=== PATIENT | male | born 1965 | race Caucasian/White ===

== ENCOUNTER 2018-03-25 16:21 | Inpatient (IN) ==
[2018-03-25] MEDS ORDERED: Vancomycin Inj 1,000 MG in Sodium Chlor 0.9% Inj 250 ML IV.SIG ONE ×2 (20:21→23:00)
--- NOTE | 2018-03-25 20:34 | ED ---
HPI General Chief complaint: Wound/Laceration Stated complaint: Foot swelling Time Seen by Provider: 03/25/18 20:13 History of Present Illness HPI narrative: 52-year-old male with a history of diabetes and hypertension presents to the urgency department for evaluation of right fourth toe infection. Patient was sent here by his assembler motor vehicle Dr. Leslie due to failed outpatient antibiotic therapy for foot infection. The patient states that the toe became significantly swollen over the past week. States that he started taking antibiotics 1 week ago. Initially started out with Cipro however had an adverse reaction of vomiting and therefore was switched to Bactrim which she has been taking for the past week. States that despite taking the antibiotics the swelling and redness of his toe has worsened. States that he has had fevers at night as well. He denies any specific pain located at the toe as he states he has reduced sensation in his feet due to the diabetes. No other complaints. Related Data Home Medications Medication Instructions Recorded Confirmed amlodipine 2.5 mg PO DAILY 03/25/18 03/25/18 gabapentin 300 mg PO TID 03/25/18 03/25/18 glipizide 10 mg PO BID 03/25/18 03/25/18 lisinopril 40 mg PO DAILY 03/25/18 03/25/18 lovastatin 40 mg PO DAILY 03/25/18 03/25/18 metformin 1,000 mg PO BID 03/25/18 03/25/18 sulfamethoxazole-trimethoprim 1 tab PO BID 03/25/18 03/25/18 Allergies Allergy/AdvReac Type Severity Reaction Status Date / Time No Known Allergies Allergy Verified 03/25/18 20:12 Review of Systems ROS: all other systems reviewed are negative PMFSH Medical History Medical History Diabetes (Acute) Hypertension (Acute) Surgical History Surgical History Hx of right knee surgery (Acute) Social History Social History Substance History: No History of Abuse Second Hand Smoke Exposure: No Smoking Status: Never smoker How Often Do You Have a Drink Containing Alcohol: Never Recent Travel in [facility] within the Last 8 Weeks: No Recent Out of Country Travel within the Last 8 Weeks: No Immunization History Tetanus Immunization: Unsure Hx Influenza Vaccine This Season: Unable to Assess Exam Narrative Exam Narrative: GENERAL: Well-nourished and well-developed pleasant patient in no acute distress who is nontoxic appearing. SKIN: Warm and dry. HEAD: Normocephalic and atraumatic. EYES: No injection, drainage, or hyphema noted. PERRLA. EOMI. ENT: No nasal drainage noted. Oropharynx is clear. NECK: Supple and the trachea is midline. CARDIOVASCULAR: Regular rate and rhythm. RESPIRATORY: Breath sounds are equal bilaterally with no accessory muscle use, wheezing, rhonchi, or crackles. GASTROINTESTINAL: Abdomen is soft, non-tender, and nondistended. MUSCULOSKELETAL: Right fourth toe is swollen and erythematous, no obvious discharge or drainage. No obvious deformities, swelling, cyanosis, or ecchymosis is present throughout the upper and lower extremities. Patient has full range of motion without any signs of neurovascular compromise. Distal pulses are 2+ throughout. NEUROLOGICAL: Awake, alert, and oriented. Normal speech and gait. Cranial nerves are grossly intact. Course Initial Documented Vital Signs Temperature 98.7 F 03/25/18 16:37 Pulse Rate 76 03/25/18 16:37 Respiratory Rate 14 03/25/18 16:37 Blood Pressure 156/75 H 03/25/18 16:37 Pulse Oximetry 97 03/25/18 16:37 Last Documented Vital Signs Temperature 99.1 F 03/25/18 20:14 Pulse Rate 73 03/25/18 20:14 Respiratory Rate 18 03/25/18 20:14 Blood Pressure 179/88 H 03/25/18 20:31 Pulse Oximetry 97 03/25/18 20:31 Medical Decision Making MDM Narrative Medical decision making narrative: 52-year-old male presents to the emergency department for evaluation of right fourth toe infection. Patient is afebrile, vital signs are stable. Patient was sent with an order from his assembler motor vehicle Dr. Leslie which states to admit the patient for failed outpatient antibiotics and to order MRI, labs and consultation to Dr. Smith. IV access is obtained, labs have been drawn and sent. Patient is placed on cardiac telemetry and pulse oximetry monitoring. The patient reports an allergy to cipro and he has a bottle of Bactrim with him that he states he has been taking for the toe infection. The prescription form that Dr. Leslie wrote states he has been taking and failed cipro and clindamycin. Therefore will give patient IV vancomycin for failed outpatient antibiotics. CBC shows mild anemia, otherwise unremarkable. X-ray shows abnormal appearance with soft tissue swelling and bony resorption of distal phalanx about tuft. Potassium is elevated at 5.5, creatinine 1.83, GFR 39. ESR is greater than 140. CRP is 5.7 MRI pending. Patient will be admitted for failed outpatient antibiotic therapy for right 4th toe infection with possible osteomyelitis. Consult to podiatry placed. I spoke with Dr. Chong who agrees to admit patient to Dr. Roper's service. Medical Screen Exam Complete: Yes Emergency Medical Condition: Yes Differential Diagnosis Differential Diagnosis: Diabetic foot wound versus cellulitis versus abscess versus osteomyelitis Lab Data Result diagrams: 03/25/18 20:44 03/25/18 20:44 Lab Results 03/25/18 03/25/18 03/25/18 Range/Units 20:44 20:44 20:44 WBC 8.3 (4.0-11.0) th/mm3 RBC 3.28 L (4.50-5.90) mil/mm3 Hgb 10.3 L (13.0-17.0) gm/dL Hct 30.4 L (39.0-51.0) % MCV 92.5 (80.0-100.0) fL MCH 31.3 (27.0-34.0) pg MCHC 33.9 (32.0-36.0) % RDW 13.2 (11.6-17.2) % Plt Count 300 (150-450) th/mm3 MPV 8.5 (7.0-11.0) fL Neut % (Auto) 71.8 H (16.0-70.0) % Lymph % (Auto) 9.9 (9.0-44.0) % [place] % (Auto) 8.4 H (0.0-8.0) % Eos % (Auto) 9.5 H (0.0-4.0) % Baso % (Auto) 0.4 (0.0-2.0) % Neut # (Auto) 6.0 (1.8-7.7) th/mm3 Lymph # (Auto) 0.8 L (1.0-4.8) th/mm3 [place] # (Auto) 0.7 (0.0-0.9) th/mm3 Eos # (Auto) 0.8 H (0.0-0.4) th/mm3 Baso # (Auto) 0.0 (0.0-0.2) th/mm3 WBC Differential . Differential Comment Auto diff final ESR (0-20) mm/hr Sodium 138 (136-145) meq/L Potassium 5.5 H (3.5-5.1) meq/L Chloride 107 (98-107) meq/L Carbon Dioxide 22.6 (21.0-32.0) meq/L Anion Gap 8 (5-15) meq/L BUN 28 H (7-18) mg/dL Creatinine 1.83 H (0.60-1.30) mg/dL Estimated GFR 39 L (>89) mL/min Random Glucose 111 H (74-106) mg/dL Lactic Acid 1.0 (0.4-2.0) mmol/L Calcium 8.7 (8.5-10.1) mg/dL Total Bilirubin 0.2 (0.2-1.0) mg/dL AST 14 L (15-37) U/L ALT 22 (12-78) U/L Alkaline Phosphatase 91 (45-117) U/L C-Reactive Protein (0.00-0.30) mg/dL Total Protein 7.5 (6.4-8.2) g/dL Albumin 3.0 L (3.4-5.0) g/dL 03/25/18 03/25/18 Range/Units 20:44 20:44 WBC (4.0-11.0) th/mm3 RBC (4.50-5.90) mil/mm3 Hgb (13.0-17.0) gm/dL Hct (39.0-51.0) % MCV (80.0-100.0) fL MCH (27.0-34.0) pg MCHC (32.0-36.0) % RDW (11.6-17.2) % Plt Count (150-450) th/mm3 MPV (7.0-11.0) fL Neut % (Auto) (16.0-70.0) % Lymph % (Auto) (9.0-44.0) % [place] % (Auto) (0.0-8.0) % Eos % (Auto) (0.0-4.0) % Baso % (Auto) (0.0-2.0) % Neut # (Auto) (1.8-7.7) th/mm3 Lymph # (Auto) (1.0-4.8) th/mm3 [place] # (Auto) (0.0-0.9) th/mm3 Eos # (Auto) (0.0-0.4) th/mm3 Baso # (Auto) (0.0-0.2) th/mm3 WBC Differential Differential Comment ESR Greater than 140 H (0-20) mm/hr Sodium (136-145) meq/L Potassium (3.5-5.1) meq/L Chloride (98-107) meq/L Carbon Dioxide (21.0-32.0) meq/L Anion Gap (5-15) meq/L BUN (7-18) mg/dL Creatinine (0.60-1.30) mg/dL Estimated GFR (>89) mL/min Random Glucose (74-106) mg/dL Lactic Acid (0.4-2.0) mmol/L Calcium (8.5-10.1) mg/dL Total Bilirubin (0.2-1.0) mg/dL AST (15-37) U/L ALT (12-78) U/L Alkaline Phosphatase (45-117) U/L C-Reactive Protein 5.70 H (0.00-0.30) mg/dL Total Protein (6.4-8.2) g/dL Albumin (3.4-5.0) g/dL Imaging Data Radiologist's impression: Foot X-Ray 03/25/18 20:21 CONCLUSION: Abnormal appearance to the fourth digit with prominent soft tissue swelling and some degree of bony resorption of the distal phalanx about the tuft. Discharge Plan Discharge Disposition Patient Disposition: 30 Still Patient Discharge Details Diagnosis: Infection of toe, Failure of outpatient treatment Physicians Team ED Provider: Mandy Vargas ED Midlevel Provider: Veronica Osorio Primary Care Provider: UNKNOWN, Rxs /Orders / Referrals /Forms Prescriptions: No Action glipizide 10 mg Tablet 10 mg PO BID RF: 0 lovastatin 40 mg Tablet 40 mg PO DAILY RF: 0 amlodipine 2.5 mg Tablet 2.5 mg PO DAILY RF: 0 sulfamethoxazole-trimethoprim 800-160 mg Tablet 1 tab PO BID RF: 0 metformin 1,000 mg Tablet 1,000 mg PO BID RF: 0 gabapentin 300 mg Capsule 300 mg PO TID RF: 0 lisinopril 40 mg Tablet 40 mg PO DAILY RF: 0 Discharge Interventions Interventions: Vital Signs Last Done: 03/25/18 20:31 Status ED Status: With Doctor
[2018-03-25 21:10] LABS: Baso % (Auto) 0.4 % (0.0-2.0); Eos # (Auto) 0.8 th/mm3 (0.0-0.4); Eos % (Auto) 9.5 % (0.0-4.0); Hematocrit 30.4 % (39.0-51.0); Hemoglobin 10.3 gm/dL (13.0-17.0); Lymph # (Auto) 0.8 th/mm3 (1.0-4.8); Lymph % (Auto) 9.9 % (9.0-44.0); Mean Corpuscular HGB Conc 33.9 % (32.0-36.0); Mean Corpuscular Hemoglobin 31.3 pg (27.0-34.0); Mean Corpuscular Volume 92.5 fL (80.0-100.0); Mean Platelet Volume 8.5 fL (7.0-11.0); Mono # (Auto) 0.7 th/mm3 (0.0-0.9); Mono % (Auto) 8.4 % (0.0-8.0); Neut % (Auto) 71.8 % (16.0-70.0); Platelet Count 300 th/mm3 (150-450); Red Blood Count 3.28 mil/mm3 (4.50-5.90); Red Cell Distribution Width 13.2 % (11.6-17.2); White Blood Count 8.3 th/mm3 (4.0-11.0)
--- NOTE | 2018-03-25 21:18 | XR ---
EXAM DATE: 03/25/2018 9:05 PM EDT AGE/SEX: 52 years / Male INDICATIONS: Right foot infection. CLINICAL DATA: This is the patient's initial encounter. Patient reports that signs and symptoms have been present for 2 months and indicates a pain score of 0/10. MEDICAL/SURGICAL HISTORY: None. None. COMPARISON: No prior exams available for comparison. FINDINGS: Bone density is normal. There is deformity of the interphalangeal joint of the fifth digit without de finite dislocation. No evidence of periosteal reaction or bony destruction about the fifth digit. No radiopaque foreign bodies in the soft tissues. There is prominent soft tissue swelling of the fourth digit and mild bony resorption of the distal ph alanx, especially about the tuft. CONCLUSION: Abnormal appearance to the fourth digit with prominent soft tissue swelling and some degree of bony r esorption of the distal phalanx about the tuft. Electronically signed by: Carlos Alberto Subramanian MD 03/25/2018 9:16 PM EDT
[2018-03-25 21:34] LABS: Anion Gap 8 meq/L (5-15); Aspartate Aminotransferase 14 U/L (15-37); Blood Urea Nitrogen 28 mg/dL (7-18); Calcium 8.7 mg/dL (8.5-10.1); Carbon Dioxide 22.6 meq/L (21.0-32.0); Chloride 107 meq/L (98-107); Glomerular Filtration Rate 39 mL/min (>89); Glucose,Random 111 mg/dL (74-106); Potassium 5.5 meq/L (3.5-5.1); Sodium 138 meq/L (136-145)
[2018-03-25 21:35] LABS: Alanine Aminotransferase 22 U/L (12-78)
[2018-03-25 21:40] LABS: Alkaline Phosphatase 91 U/L (45-117); Total Protein 7.5 g/dL (6.4-8.2)
[2018-03-25] MEDS ORDERED: Gadobutrol PF 10 MMOL/10 ML Vial (for RAD) IV.SIG ONE (22:17)
[2018-03-25] MEDS ORDERED: Vancomycin Consult Pharmacy OTHER PRN (22:46)
[2018-03-25] MEDS ORDERED: Dextrose 50% in Water 50 ML Vial IV.PUSH PRN (22:47)
[2018-03-25] MEDS ORDERED: Sod Chloride 0.9% Inj 1,000 ML IV.CONT SCH (23:00)
--- NOTE | 2018-03-25 23:00 | MR ---
EXAM DATE: 03/25/2018 10:33 PM EDT AGE/SEX: 52 years / Male INDICATIONS: Osteomyelitis. Tip of fourth toe digit on right foot. CLINICAL DATA: This is the patient's initial encounter. Patient reports that signs and symptoms have been present for 2 months and indicates a pain score of 1/10. MEDICAL/SURGICAL HISTORY: Diabetes mellitus type II. Hypertension. . Knee sx. COMPARISON: No prior exams available for comparison. TECHNIQUE: Multiplanar, multisequence MRI examination was performed without contrast and after th e intravenous administration of 10 ml Gadavist (gadobutrol) single exam dose. FINDINGS: Conventional radiographs demonstrated lytic destruction of the distal phalanx of the fourth digit an d soft tissue swelling. The MRI is abnormal demonstrating loss of delineation between bone and soft t issue of the distal phalanx with T1 and T2 prolongation. On the postcontrast images, there is intense enhancement throughout the distal phalanx and in the surrounding soft tissues. No signal abnormality seen in the middle phalanx marrow and no enhancement in the middle phalanx. There is dislocation of the DIP joint of the fifth digit with one shaft width displacement of the dis georgina phalanx. No signal abnormality seen in the midfoot. CONCLUSION: 1. Findings are diagnostic of osteomyelitis of the distal phalanx of the fourth digit with destructi on of the phalanx. Electronically signed by: Carlos Alberto Subramanian MD 03/25/2018 10:58 PM EDT
[2018-03-26] MEDS: Insulin NovoLOG Aspart Correctional Sugar Inj SQ SCH ×3 (08:48→17:34)
[2018-03-26] MEDS: Gabapentin 300 MG Capsule PO SCH ×3 (08:49→17:34)
--- NOTE | 2018-03-26 08:53 | P.HPIM ---
History of Present Illness Primary Care Physician: Dr. Dewayne Ma Chief Complaint: Right foot 4th digit infection History of Present Illness: Mr. Busby is a pleasant 52 y/o male with diabetes and HTN. He presented to the ED at [facility] on 03/25/18 with complaints of right foot 4th digit infection and swelling. Pt does not speak any Slovak. His daughter is at bedside to aide in translation. Pt has reportedly been having issues with swelling of the right foot 4th digit for the last 3 weeks. He has been following with Dr. Leslie as an outpt who has been monitoring the digit in the output setting. Around 1 week ago the pt reportedly noted worsening swelling and fevers. He was started on Cipro but this reportedly caused him to have vomiting and was then switched to Bactrim BID on 03/20/18 which he has been taking but there has not been any significant improvement in the infection. There has not been any reported open wound or drainage from the digit. Pt denies any trauma or injury to the toe or foot prior to the onset of swelling 3 weeks ago. In the ED he had Foot X-Ray which noted an abnormal appearance to the fourth digit with prominent soft tissue swelling and some degree of bony resorption of the distal phalanx about the tuft. Foot MRI revealed findings diagnostic of osteomyelitis of the distal phalanx of the fourth digit with destruction of the phalanx. Pt was started on IV Vancomycin in the ED. He denies any shaking chills, nausea/vomiting, abdominal pain, chest pain, SOB, palpitations, dizziness or weakness. Past Medical Hx: Diabetes mellitus, Hgb A1C 7.0% on 03/04/18 Peripheral Neuropathy HTN Hyperlipidemia Hx of femur fracture Past Surgical Hx: Femur fracture repair Family Hx: Noncontributory Social Hx: Tomer any alcohol, tobacco or illicit drug use Pt works as a air intelligence officer - Diagnosis (1) Infection of toe (2) HTN (hypertension) (3) Diabetes mellitus (4) Peripheral neuropathy Inpatient Certification: I certify that the inpatient services were ordered in accordance with Medicare regulations governing the order. This includes certification that hospital inpatient services are reasonable and necessary and in the case of services not specified as inpatient-only under 42 CFR 419.22(n), that they are appropriately provided as inpatient services in accordance to with the 2-midnight benchmark under 43 CFR 412.3(e) Estimated Total Length of Stay (Days): 3 Plans for Post Hospital Care: Not yet determined Review of Systems Constitutional: Reports fever(s), Denies chills, Denies night sweats, Denies weight loss Eyes: Denies change in vision Ears, Nose, Mouth, and Throat: Denies dizziness, Denies nasal congestion Cardiovascular: Reports foot swelling, Denies chest pain, Denies leg swelling, Denies shortness of breath Respiratory: Denies chest congestion, Denies shortness of breath Gastrointestinal: Denies abdominal pain, Denies constipation, Denies loose stools, Denies nausea, Denies vomiting Genitourinary: Denies urinary frequency, Denies urinary hesitancy Musculoskeletal: Reports joint swelling Skin/Breast: Reports wounds Neurologic: Denies dizziness Psychiatric: Denies anxiety PMFSH - History History Provided By: Patient, Family Member - Medical History Medical History: Medical History (Last Updated 03/25/18 @ 20:33 by Vania Gandhi RN) Diabetes Hypertension - Surgical History Surgical History: Surgical History (Last Updated 03/25/18 @ 20:15 by Vania Gandhi RN) Hx of right knee surgery - Tobacco History Second Hand Smoke Exposure: No Smoking Status: Never smoker Tobacco Type: Cigarettes - Alcohol History How Often Do You Have a Drink Containing Alcohol: Never - Substance Use History Substance History: No History of Abuse - Travel History Recent Travel in the [place] Within the Last 8 Weeks: No Recent Travel Out of the Country Within the Last 8 Weeks: No - Immunization History Tetanus Immunization: Unsure Hx Influenza Vaccine This Season: Unable to Assess Medications and Allergies Allergies Allergy/AdvReac Type Severity Reaction Status Date / Time No Known Allergies Allergy Verified 03/25/18 20:12 Home Medications Medication Instructions Recorded Confirmed Type amlodipine 2.5 mg PO DAILY 03/25/18 03/25/18 History gabapentin 300 mg PO TID 03/25/18 03/25/18 History glipizide 10 mg PO BID 03/25/18 03/25/18 History lisinopril 40 mg PO DAILY 03/25/18 03/25/18 History lovastatin 40 mg PO DAILY 03/25/18 03/25/18 History metformin 1,000 mg PO BID 03/25/18 03/25/18 History sulfamethoxazole-trimethoprim 1 tab PO BID 03/25/18 03/25/18 History Active Medications: Active Medications Amlodipine Besylate (Norvasc) 2.5 mg PO DAILY [facility] Dextrose (D50w Vial) 50 ml IV.PUSH UNSCH PRN PRN Reason: PER HYPOGLYCEMIA PROTOCOL Gabapentin (Neurontin) 300 mg PO TID [facility] Last Admin: 03/26/18 08:49 Dose: 300 mg Glucagon (Glucagon Inj) 1 mg OTHER PRN PRN PRN Reason: for Hypoglycemia Protocol Sodium Chloride (Ns Inj) 1,000 mls @ 100 mls/hr IV.CONT .Q10H [facility] Stop: 03/26/18 08:59 Last Admin: 03/26/18 00:18 Dose: 100 mls/hr Insulin Aspart (Novolog Insulin Correctional Sugar Inj) 0 unit SQ ACHS [facility]; Protocol Last Admin: 03/26/18 08:48 Dose: 2 unit Pharmacy Profile Note (Vancomycin Consult Pharmacy) 1 each OTHER UNSCH PRN PRN Reason: Pharmacy to dose Pravastatin Sodium (Pravachol) 40 mg PO DAILY [facility] Last Admin: 03/26/18 08:50 Dose: 40 mg Exam Vital signs: Vital Signs 03/25/18 16:37 03/25/18 20:14 03/25/18 20:31 Temperature 98.7 F 99.1 F Pulse Rate 76 73 Respiratory Rate 14 18 Blood Pressure 156/75 H 179/88 H Pulse Oximetry 97 98 97 03/26/18 00:00 03/26/18 04:00 Temperature 98.3 F 97.8 F Pulse Rate 75 72 Respiratory Rate 16 16 Blood Pressure 153/71 H 142/76 H Pulse Oximetry 98 97 Intake & Output 03/25/18 03/26/18 03/26/18 18:59 06:59 18:59 Intake Total 500 / 500 Balance 500 / 500 Weight 104.326 kg Intake: IV 500 / 500 Vancomycin Inj 1,000 MG In NS 500 / 500 Inj 250 ML @ 250 mls/hr IV.SIG ONCE ONE Rx#:[id number] Narrative: GENERAL: NAD, AAOx3 SKIN: Right foot, fourth toe is swollen and erythematous, no obvious drainage or open wound HEENT: Atraumatic. Normocephalic. Pupils equal and round. No scleral icterus. No injection or drainage. No nasal bleeding or discharge. Mucous membranes pink and moist. NECK: Trachea midline. No JVD. CARDIOVASCULAR: Regular rate and rhythm. RESPIRATORY: No accessory muscle use. Clear to auscultation. Breath sounds equal bilaterally. GASTROINTESTINAL: Abdomen soft, non-tender, nondistended. Hepatic and splenic margins not palpable. MUSCULOSKELETAL: Extremities without clubbing, cyanosis. No obvious deformities. +2 distal pulses bilaterally NEUROLOGICAL: Awake and alert. No obvious cranial nerve deficits. Motor grossly within normal limits. Five out of 5 muscle strength in the arms and legs. Normal speech. PSYCHIATRIC: Appropriate mood and affect; insight and judgment normal. Results - Labs CBC & Chem 7: 03/26/18 09:35 03/26/18 09:35 Labs: Short CBC 03/25/18 Range/Units 20:44 WBC 8.3 (4.0-11.0) th/mm3 Hgb 10.3 L (13.0-17.0) gm/dL Hct 30.4 L (39.0-51.0) % Plt Count 300 (150-450) th/mm3 BMP 03/25/18 20:44 Sodium 138 Potassium 5.5 H Chloride 107 Carbon Dioxide 22.6 BUN 28 H Creatinine 1.83 H Calcium 8.7 Liver Function 03/25/18 Range/Units 20:44 Total Bilirubin 0.2 (0.2-1.0) mg/dL AST 14 L (15-37) U/L ALT 22 (12-78) U/L Alkaline Phosphatase 91 (45-117) U/L Albumin 3.0 L (3.4-5.0) g/dL - Imaging Impressions Foot MRI 03/25/18 20:21 CONCLUSION: 1. Findings are diagnostic of osteomyelitis of the distal phalanx of the fourth digit with destruction of the phalanx. Foot X-Ray 03/25/18 20:21 CONCLUSION: Abnormal appearance to the fourth digit with prominent soft tissue swelling and some degree of bony resorption of the distal phalanx about the tuft. Caprini VTE Risk Assessment Caprini VTE Risk Assessment: No/Low Risk (score <= 1) Caprini Risk Assessment Model: Point Value = 1 Point Value = 2 Point Value = 3 Point Value = 5 Age 41-60 Minor surgery BMI > 25 kg/m2 Swollen legs Varicose veins or History of unexplained or recurrent spontaneous Oral contraceptives or hormone replacement Sepsis (< 1 month) Serious lung disease, including pneumonia (< 1 month) Abnormal pulmonary function Acute myocardial infarction Congestive heart failure (< 1 month) History of inflammatory bowel disease Medical patient at bed rest Age 61-74 Arthroscopic surgery Major open surgery (> 45 min) Laparoscopic surgery (> 45 min) Malignancy Confined to bed (> 72 hours) Immobilizing plaster cast Central venous access Age >= 75 History of VTE Family history of VTE Factor V Leiden Prothrombin [id number] Lupus anticoagulant Anticardiolipin antibodies Elevated serum homocysteine Heparin-induced thrombocytopenia Other congenital or acquired thrombophilia Stroke (< 1 month) Elective arthroplasty Hip, pelvis, or leg fracture Acute spinal cord injury (< 1 month) Prophylaxis Regimen: Total Risk Factor Score Risk Level Prophylaxis Regimen 0-1 Low Early ambulation 2 Moderate Order ONE of the following: *Sequential Compression Device (SCD) *Heparin 5000 units SQ BID 3-4 Higher Order ONE of the following medications: *Heparin 5000 units SQ TID *Enoxaparin/Lovenox 40 mg SQ daily (WT < 150 kg, CrCl > 30 mL/min) *Enoxaparin/Lovenox 30 mg SQ daily (WT < 150 kg, CrCl > 10-29 mL/min) *Enoxaparin/Lovenox 30 mg SQ BID (WT < 150 kg, CrCl > 30 mL/min) AND/OR *Sequential Compression Device (SCD) 5 or more Highest Order ONE of the following medications: *Heparin 5000 units SQ TID (Preferred with Epidurals) *Enoxaparin/Lovenox 40 mg SQ daily (WT < 150 kg, CrCl > 30 mL/min) *Enoxaparin/Lovenox 30 mg SQ daily (WT < 150 kg, CrCl > 10-29 mL/min) *Enoxaparin/Lovenox 30 mg SQ BID (WT < 150 kg, CrCl > 30 mL/min) AND *Sequential Compression Device (SCD) Assessment and Plan - Assessment (1) Infection of toe Code(s): L08.9 - Local infection of the skin and subcutaneous tissue, unspecified Status: Acute Plan: Right foot 4th digit infection and osteomyelitis - Pt is a 52 y/o male with diabetes and HTN. - He presented to the ED at [facility] on 03/25/18 with complaints of right foot 4th digit infection and swelling. Pt has reportedly been having issues with swelling of the right foot 4th digit for the last 3 weeks. He has been following with Dr. Leslie as an outpt who has been monitoring the digit in the output setting. Around 1 week ago the pt reportedly noted worsening swelling and fevers. He was started on Cipro but this reportedly caused him to have vomiting and was then switched to Bactrim BID on 03/20/18 which he has been taking but there has not been any significant improvement in the infection. There has not been any reported open wound or drainage from the digit. - Foot X-Ray (03/25/18) --> Abnormal appearance to the fourth digit with prominent soft tissue swelling and some degree of bony resorption of the distal phalanx about the tuft. - Foot MRI (03/25/18) --> Findings diagnostic of osteomyelitis of the distal phalanx of the fourth digit with destruction of the phalanx. - ESR greater than 140 and CRP 5.70 at admission. -Pt was started on IV Vancomycin in the ED with pharmacy to dose. - Podiatry is consulted. Discussed the case with Dr. Smith this morning and pt is planned to go to the OR later this evening - Pt is NPO - Cont. IVF - Arterial Doppler is ordered for today - Supportive care Acute on chronic kidney disease Hyperkalemia - Outpt labs on 03/04 with Cr 1.55/BUN 34, GFR 50 and prior to that labs in 2017 with Cr 1.17/BUN 23, GFR 71 - Labs at admission with Cr 1.83/BUN 28 and GFR 39 - Pt is been receiving IVF - Await repeat labs this morning to recheck electrolytes as his potassium was also high at admission but pt has been on Bactrim at home and is on an MARLIN-I and he works outside, may be medication related vs. slight dehydration Diabetes mellitus - Hold OHA - NovoLog SSI - Accu checks HTN - Lisinopril held - Cont. Norvasc 2.5mg po daily - Clonidine PRN - Monitor Hyperlipidemia - Cont. home meds The exam, history, and the medical decision-making described in the above note were completed with the assistance of the mid-level provider. I reviewed and agree with the findings presented. I attest that I had a [id number] encounter with the patient on the same day, and personally performed and documented my assessment and findings in the medical record. right foot 4rth digit osteo. spoke to podiatry. going for amputation today. given iv abx. ivf for mild yen from baseline and mild hyperkalemia. pt was on bactrim. ekg w/out hyperkalemia changes. ok to proceed to surgery (2) HTN (hypertension) Code(s): I10 - Essential (primary) hypertension Status: Acute (3) Diabetes mellitus Code(s): E11.9 - Type 2 diabetes mellitus without complications Status: Acute (4) Peripheral neuropathy Code(s): G62.9 - Polyneuropathy, unspecified Status: Acute H&P: Quality - VTE Deep Vein Thrombosis/Pulmonary Embolism Present on Admission: No
[2018-03-26] MEDS: amLODIPine 5 MG Tablet PO SCH (08:55)
[2018-03-26 10:10] LABS: Baso % (Auto) 0.7 % (0.0-2.0); Eos # (Auto) 0.7 th/mm3 (0.0-0.4); Eos % (Auto) 9.3 % (0.0-4.0); Lymph % (Auto) 14.2 % (9.0-44.0); Mean Corpuscular HGB Conc 33.3 % (32.0-36.0); Mean Corpuscular Hemoglobin 31.2 pg (27.0-34.0); Mean Corpuscular Volume 93.6 fL (80.0-100.0); Mean Platelet Volume 8.4 fL (7.0-11.0); Mono # (Auto) 0.7 th/mm3 (0.0-0.9); Mono % (Auto) 9.9 % (0.0-8.0); Neut # (Auto) 4.8 th/mm3 (1.8-7.7); Neut % (Auto) 65.9 % (16.0-70.0); Platelet Count 284 th/mm3 (150-450); Red Cell Distribution Width 13.3 % (11.6-17.2); White Blood Count 7.3 th/mm3 (4.0-11.0)
--- NOTE | 2018-03-26 10:13 | MB ---
cc: John Smith DPM DATE: 03/26/2018 REASON FOR CONSULTATION: Right fourth digit infection, likely osteomyelitis. HISTORY OF PRESENT ILLNESS: This is a 52-year-old male who follows with Dr. Leslie outpatient. It appears the patient has had a worsening ulcer over the last 2-3 weeks. The last visit. There is significant infection clinically. The patient was admitted. MRI performed. There was noted to be abnormal appearance of the fourth digit with resorption of the distal phalanx tuft correlating with likely osteomyelitis seen on plain film x-ray. Currently, I am seeing the patient at bedside with his daughter, who serves as a customer leader; the patient is mainly Yi speaking. The patient has been having subjective fevers nighttime for the past week or so. Last hemoglobin A1c within the last 3 months was approximately 7. The patient denies smoking. The patient started Cipro, but had an adverse reaction of vomiting and the patient was switched to Bactrim and there has been no improvement. PAST MEDICAL HISTORY: Diabetes, peripheral neuropathy, history of right knee surgery. SOCIAL HISTORY: No substance abuse. No history of smoking. He works as a recreation director. ALLERGIES: NONE LISTED; HOWEVER, CIPRO MAY BE A SIDE EFFECT OF THE MEDICATION VERSUS ALLERGY. MEDICATIONS: Medications reviewed. The patient is receivin. Vancomycin. 2. Insulin. 3. Glucagon. 4. Amlodipine. 5. Gabapentin. PHYSICAL EXAMINATION: VITAL SIGNS: Temperature is 97, respiratory rate 16, pulse rate 72, blood pressure 142/76. He has been sating 97% on room air. GENERAL: This is alert and oriented, male seen at bedside exhibiting nonlabored respirations. EXTREMITIES: Right lower extremity is examined. There is noted to be significant edema, erythema and obvious cellulitis 226 is near the entire right fourth digit. Pedal pulses are palpable. Posterior tibialis, dorsalis pedis is slightly decreased. Sensation is decreased to light touch to the distal forefoot, but intact to deep pressure proximally. There is good alignment of the forefoot, hindfoot and ankle. LABORATORY DATA: Chem-7: Sodium 138, potassium 5.5, chloride 107, CO2 22.6, BUN is 28, creatinine 1.83, random glucose 111, AST 14. C-reactive protein 5.7, white blood cell 8.3, hemoglobin and hematocrit 10 and 30, platelet count is 300. ESR is greater than 140. IMAGING: MRI: Findings are diagnostic of osteomyelitis of the distal fourth digit with destruction of the phalanx. This is seen radiographically as well. ASSESSMENT: Right fourth digit osteomyelitis. PLAN: Operating room likely later on today. I did order hemoglobin A1c and arterial Doppler. The patient had severe concerns of not healing and leading to partial foot amputation if not [id number] amputation. I feel I can better address this if I can have a study that shows good circulation and controlled diabetes. Furthermore, I do think the patient is at a moderate risk given the situation. I will notify Medicine of my plan and I will alert them of the potassium and see if this needs to be corrected prior to surgery. The patient is ordered clear liquids, n.p.o. after 11 a.m. Plan for surgery later on tonight. TUSHAR Vernon/flakita/alex , 08:49 AM , 08:59 AM
[2018-03-26 10:40] LABS: Calcium 8.2 mg/dL (8.5-10.1); Carbon Dioxide 22.9 meq/L (21.0-32.0); Potassium 5.4 meq/L (3.5-5.1)
[2018-03-26] MEDS ORDERED: Chlorhexidine Gluconate 2% 1 Pack (2 Cloths) TOPICAL SCH (11:30)
[2018-03-26] MEDS ORDERED: Metoprolol Tartrate 25 MG Tablet PO SCH (11:30)
[2018-03-26] MEDS: Sod Chloride 0.9% Inj 1,000 ML IV.CONT SCH (11:39)
--- NOTE | 2018-03-26 11:48 | ECHRPT ---
EXAM DATE: 03/26/2018 11:28 AM EDT AGE/SEX: 52 years / Male INDICATIONS: Right 4th toe infection CLINICAL DATA: This is the patient's initial encounter. Patient reports that signs and symptoms have been present for 2 days and indicates a pain score of 2/10. MEDICAL/SURGICAL HISTORY: . diabetes mellitus, hypertension . right knee surgery COMPARISON: No prior exams available for comparison. TECHNIQUE: Four-cuff ankle and brachial pressures were obtained. Pulse cuff waveform tracings of the ankles were recorded, and ankle-brachial indices were calculated. PRESSURES (mmHg): Brachial (arm) : RIGHT: iv site, LEFT: 135 Ankle : RIGHT: 167, LEFT: 176 KEVIN : RIGHT: 1.24, LEFT: 1.30 TBI : RIGHT: 1.05, LEFT: 1.03 FINDINGS: Pulsed-Cuff Waveform: There are good upstroke and a dicrotic downstroke of the tracings. Other: None. CONCLUSION: Normal study. Electronically signed by: Geoffrey Ramirez MD 03/26/2018 11:46 AM EDT
[2018-03-26] MEDS ORDERED: Sodium Chlor 0.9% Inj 500 ML IV.SIG SCH (12:00)
[2018-03-26 15:14] LABS: Hemoglobin A1c 7.2 % (4.3-6.0)
--- NOTE | 2018-03-26 21:43 | ECG ---
Date Performed: 03/25/2018 Time Performed: 22:44:47 PTAGE: 52 years EKG: Sinus rhythm NORMAL ECG NO PREVIOUS TRACING DOCTOR: Juancarlos Valentine Interpretating Date/Time 03/26/2018 21:42:17
[2018-03-26] MEDS ORDERED: Bupivacaine PF 0.25% Inj 30 ML Vial ONE (22:56)
[2018-03-26] MEDS ORDERED: Propofol Inj 500 MG/50 ML Vial ONE (23:09)
[2018-03-26] MEDS: Vancomycin Inj 1,250 MG in Sodium Chlor 0.9% Inj 250 ML IV.SIG SCH (23:47)
--- NOTE | 2018-03-27 00:03 | P.BOP ---
- Preoperative Diagnosis (1) Osteomyelitis of right foot - Postoperative Diagnosis (1) Osteomyelitis of right foot Date of procedure: 03/26/18 Procedure: Right 4th digit amputation Anesthesia: GETA Surgeon: John Enrique DPM Estimated blood loss (mL): 15 (mL) Tourniquet time (min): 215 (mmhg) Pathology: none sent (toe for path and deep amp margin swab for wd cx) Condition: stable Disposition: floor
[2018-03-27] MEDS ORDERED: fentaNYL Citrate Inj 100 MCG/2 ML Ampul ONE (00:05)
[2018-03-27] MEDS: Insulin NovoLOG Aspart Correctional Sugar Inj SQ SCH ×4 (00:44→23:03)
--- NOTE | 2018-03-27 03:48 | MP ---
cc: John Smith DPM DATE OF OPERATION: 03/26/2018 PREOPERATIVE DIAGNOSIS: Right fourth digit osteomyelitis with ulcer. POSTOPERATIVE DIAGNOSIS: Right fourth digit osteomyelitis with ulcer. PROCEDURE PERFORMED: Right fourth digit amputation. ANESTHESIA: General. TOURNIQUET TIME: 15 minutes at a setting at 215 mmHg. ESTIMATED BLOOD LOSS: 15 mL. SPECIMENS: Culture taken of the amputation margin. Toe was sent for pathological analysis. Sharp disarticulation took place and there appeared to be clinically no signs of osteomyelitis at the amputation margin. DISPOSITION: Return to floor. Monitor wound for 1-2 days, likely discharge on oral antibiotics pending culture. COMPLICATIONS: None. JUSTIFICATION FOR PROCEDURE: A 52-year-old male diabetic, had ulcer. Ulcer was debrided. The patient had decline of the digit. The patient was sent into the hospital. MRI verified bone infection. The patient had good circulation, verified by Doppler. Relatively good control of diabetes with a hemoglobin A1c of approximately 7.5. The patient had questions regarding digit salvage versus definitive amputation. The patient chose digit amputation, understood the risks and benefits, and possible need for more surgery at a later date, revision surgery, poor wound healing. No guarantees given or implied regarding the outcome; however, eradication of the bone infection would decrease the chance of complications from IV antibiotics and likely the patient will heal quicker. PROCEDURE IN DETAIL: Under mild sedation, the patient was brought to the operating room, placed on the operating table in the supine position. Following the induction of general anesthesia, local anesthesia was obtained about the right foot utilizing standard block fashion of the proximal mid foot. The right foot was then scrubbed, prepped and draped in the usual aseptic fashion. The foot was elevated and exsanguinated and the previously placed mid calf tourniquet was inflated at 215 mmHg. A fish mouth type incision was made at the base of the fourth digit at a margin that appeared to be clear clinically from any inflammation. Sharp and blunt dissection was carried down to the joint. It was sharply disarticulated. The fourth metatarsal head was noted to be hard without any signs of clinical infection. A swab was taken at this level. Bovie and ligation took place of venous and arterial structures that were seen at the amputation margin. Deep closure took place utilizing PDS. Skin closure took place utilizing nylon. Upon relieving the tourniquet, there was a prompt hyperemic response to all digits 1, 2, 3 and 5. Good viability seen of the amputation flap margins. Bulky bandage applied. The patient was transferred over to PACU with all vital signs stable. The patient has heel transfer weight bear. We will evaluate the wound within 24-48 hours hoping to discontinue once the wound culture clears on oral antibiotics. The patient will follow with Dr. Leslie once he is discharged. TUSHAR Vernon/sv , 12:03 AM , 12:09 AM
[2018-03-27] MEDS: Sod Chloride 0.9% Inj 1,000 ML IV.CONT SCH ×3 (08:39→16:36)
--- NOTE | 2018-03-27 09:55 | P.PNIM ---
Subjective Interval history: Pt without any specific complaints at the time of exam Pt tolerating diet well Vital signs are stable Physical Exam Vital signs: Vital Signs 03/26/18 12:00 03/26/18 16:00 03/26/18 20:00 Temperature 100.0 F H 98.5 F 98.2 F Pulse Rate 67 69 75 Respiratory Rate 16 18 22 Blood Pressure 150/72 H 148/78 H 179/87 H Pulse Oximetry 98 97 95 03/26/18 22:13 03/27/18 00:00 03/27/18 00:10 Temperature 98.5 F 98.4 F Pulse Rate 75 67 68 Respiratory Rate 14 15 15 Blood Pressure 158/78 H 132/75 135/79 Pulse Oximetry 96 100 100 03/27/18 00:15 03/27/18 00:28 03/27/18 01:21 Temperature 98.4 F 97.4 F L Pulse Rate 68 70 Respiratory Rate 19 18 Blood Pressure 147/82 H 140/80 Pulse Oximetry 100 100 96 03/27/18 04:00 03/27/18 08:00 Temperature 98.1 F 97.9 F Pulse Rate 68 68 Respiratory Rate 18 20 Blood Pressure 183/96 H Pulse Oximetry 97 96 Intake & Output 03/26/18 03/27/18 03/27/18 18:59 06:59 18:59 Intake Total 1600 / 1600 1700 / 1700 262.5 / 262.5 Output Total 5 / 5 Balance 1600 / 1600 1695 / 1695 262.5 / 262.5 Weight 104.3 kg Intake: IV 1600 / 1600 1000 / 1000 262.5 / 262.5 NS Inj 1,000 ML @ 100 mls/hr IV 1600 / 1600 .CONT .Q10H [facility] Rx#:[id number] LR 1000 mL Inj 1,000 ML @ 30 1000 / 1000 mls/hr IV.SIG .Q24H [facility] Rx#: [id number] Vancomycin Inj 1,250 MG In NS 262.5 / 262.5 Inj 250 ML @ 250 mls/hr IV.SIG Q24H [facility] Rx#:[id number] Anesthesia Amount 700 / 700 Output: Estimated Blood Loss 5 / 5 Other: # Voids 6 1 Date of Last Bowel Movement 03/26/18 Narrative: general: NAD, AAOx3 Chest: CTA Cardiac: Regular Abd: +BS, soft ND/NT Ext: Right foot bandages are c/d/i Results - Labs CBC & Chem 7: 03/26/18 09:35 03/27/18 11:42 Laboratory Results - last 24 hr 03/26/18 03/26/18 03/26/18 09:35 09:35 09:35 WBC 7.3 RBC 3.20 L Hgb 10.0 L Hct 30.0 L MCV 93.6 MCH 31.2 MCHC 33.3 RDW 13.3 Plt Count 284 MPV 8.4 Neut % (Auto) 65.9 Lymph % (Auto) 14.2 [place] % (Auto) 9.9 H Eos % (Auto) 9.3 H Baso % (Auto) 0.7 Neut # (Auto) 4.8 Lymph # (Auto) 1.0 [place] # (Auto) 0.7 Eos # (Auto) 0.7 H Baso # (Auto) 0.0 WBC Differential . Differential Comment Auto diff final Sodium 140 Potassium 5.4 H Chloride 110 H Carbon Dioxide 22.9 Anion Gap 7 BUN 26 H Creatinine 1.70 H Estimated GFR 42 L POC Glucose Random Glucose 141 H Hemoglobin A1c 7.2 H Calcium 8.2 L 03/26/18 03/26/18 03/26/18 12:55 17:28 20:07 WBC RBC Hgb Hct MCV MCH MCHC RDW Plt Count MPV Neut % (Auto) Lymph % (Auto) [place] % (Auto) Eos % (Auto) Baso % (Auto) Neut # (Auto) Lymph # (Auto) [place] # (Auto) Eos # (Auto) Baso # (Auto) WBC Differential Differential Comment Sodium Potassium Chloride Carbon Dioxide Anion Gap BUN Creatinine Estimated GFR POC Glucose 99 93 86 Random Glucose Hemoglobin A1c Calcium - Imaging Impressions Extremity Arterial Study 03/26/18 00:00 CONCLUSION: Normal study. Assessment and Plan - Assessment (1) Infection of toe Code(s): L08.9 - Local infection of the skin and subcutaneous tissue, unspecified Status: Acute Plan: Right foot 4th digit infection and osteomyelitis - Pt is a 52 y/o male with diabetes and HTN. - He presented to the ED at [facility] [place] on 03/25/18 with complaints of right foot 4th digit infection and swelling. Pt has reportedly been having issues with swelling of the right foot 4th digit for the last 3 weeks. He has been following with Dr. Leslie as an outpt who has been monitoring the digit in the output setting. Around 1 week ago the pt reportedly noted worsening swelling and fevers. He was started on Cipro but this reportedly caused him to have vomiting and was then switched to Bactrim BID on 03/20/18 which he has been taking but there has not been any significant improvement in the infection. There has not been any reported open wound or drainage from the digit. - Foot X-Ray (03/25/18) --> Abnormal appearance to the fourth digit with prominent soft tissue swelling and some degree of bony resorption of the distal phalanx about the tuft. - Foot MRI (03/25/18) --> Findings diagnostic of osteomyelitis of the distal phalanx of the fourth digit with destruction of the phalanx. - ESR greater than 140 and CRP 5.70 at admission. -Pt was started on IV Vancomycin in the ED with pharmacy to dose. - Arterial Doppler is normal - Podiatry is following. - Pt underwent Right 4th digit amputation on 03/26/[address] Smith - Cultures and pathology are pending. - Pain is controlled currently - Supportive care Acute on chronic kidney disease Hyperkalemia - Outpt labs on 03/04 with Cr 1.55/BUN 34, GFR 50 and prior to that labs in 2017 with Cr 1.17/BUN 23, GFR 71 - Labs at admission with Cr 1.83/BUN 28 and GFR 39 - Pt is been receiving IVF - Repeat labs on 03/26 with Cr 1.70 and potassium 5.4 - Await repeat BMP today Diabetes mellitus - Hold OHA - NovoLog SSI - Accu checks HTN - Lisinopril held - Cont. Norvasc 2.5mg po daily - Clonidine PRN - Monitor Hyperlipidemia - Cont. home meds The exam, history, and the medical decision-making described in the above note were completed with the assistance of the mid-level provider. I reviewed and agree with the findings presented. I attest that I had a [id number] encounter with the patient on the same day, and personally performed and documented my assessment and findings in the medical record. spoke with Dr Smith. Likely dc in next 1-2d after cx resulted. He pretty sure the bone margin will be negative on the amputation site. He would like pt to go home on a po abx. (2) HTN (hypertension) Code(s): I10 - Essential (primary) hypertension Status: Acute (3) Diabetes mellitus Code(s): E11.9 - Type 2 diabetes mellitus without complications Status: Acute (4) Peripheral neuropathy Code(s): G62.9 - Polyneuropathy, unspecified Status: Acute
[2018-03-27] MEDS: amLODIPine 5 MG Tablet PO SCH (11:24)
[2018-03-27] MEDS: Gabapentin 300 MG Capsule PO SCH ×3 (11:24→18:07)
[2018-03-27 13:37] LABS: Calcium 8.9 mg/dL (8.5-10.1); Potassium 5.3 meq/L (3.5-5.1)
--- NOTE | 2018-03-27 22:23 | P.PNPOD ---
Subjective Interval history: s/p R 4th toe amputation 03/26/18 [facility] Physical Exam Vital signs: Vital Signs 03/27/18 00:00 03/27/18 00:10 03/27/18 00:15 Temperature 98.4 F 98.4 F Pulse Rate 67 68 68 Respiratory Rate 15 15 19 Blood Pressure 132/75 135/79 147/82 H Pulse Oximetry 100 100 100 03/27/18 00:28 03/27/18 01:21 03/27/18 04:00 Temperature 97.4 F L 98.1 F Pulse Rate 70 68 Respiratory Rate 18 18 Blood Pressure 140/80 183/96 H Pulse Oximetry 100 96 97 03/27/18 08:00 03/27/18 09:00 03/27/18 12:00 Temperature 97.9 F 98.0 F Pulse Rate 68 70 68 Respiratory Rate 20 18 Blood Pressure 160/79 H 191/93 H Pulse Oximetry 96 96 03/27/18 16:00 03/27/18 20:00 Temperature 97.5 F L 98.7 F Pulse Rate 63 72 Respiratory Rate 18 20 Blood Pressure 170/84 H 179/86 H Pulse Oximetry 97 97 Intake & Output 03/27/18 03/27/18 03/28/18 06:59 18:59 06:59 Intake Total 1700 / 1700 262.5 / 262.5 Output Total 5 / 5 Balance 1695 / 1695 262.5 / 262.5 Weight 104.3 kg Intake: IV 1000 / 1000 262.5 / 262.5 LR 1000 mL Inj 1,000 ML @ 30 1000 / 1000 mls/hr IV.SIG .Q24H [facility] Rx#: [id number] Vancomycin Inj 1,250 MG In NS 262.5 / 262.5 Inj 250 ML @ 250 mls/hr IV.SIG Q24H [facility] Rx#:[id number] Anesthesia Amount 700 / 700 Output: Estimated Blood Loss 5 / 5 Other: # Voids 1 2 Date of Last Bowel Movement 03/27/18 Narrative: dressing clean, dry, intact Medications and Allergies Active Medications: Active Medications Amlodipine Besylate (Norvasc) 2.5 mg PO DAILY [facility] Last Admin: 03/27/18 11:24 Dose: 2.5 mg Chlorhexidine Gluconate (Chlorhexidine 2% Cloth) 3 pack TOPICAL DORMITORY KEEPER [facility] Stop: 03/29/18 11:25 Dextrose (D50w Vial) 50 ml IV.PUSH UNSCH PRN PRN Reason: PER HYPOGLYCEMIA PROTOCOL Gabapentin (Neurontin) 300 mg PO TID [facility] Last Admin: 03/27/18 18:07 Dose: 300 mg Glucagon (Glucagon Inj) 1 mg OTHER PRN PRN PRN Reason: for Hypoglycemia Protocol Sodium Chloride (Ns Inj) 1,000 mls @ 100 mls/hr IV.CONT .Q10H [facility] Last Admin: 03/27/18 16:36 Dose: Not Given Lactated Ringer's (Lr 1000 Ml Inj) 1,000 mls @ 30 mls/hr IV.SIG .Q24H [facility] Stop: 03/29/18 11:25 Last Admin: 03/27/18 13:32 Dose: Not Given Sodium Chloride (Ns Inj) 500 mls @ 30 mls/hr IV.SIG .Q10H [facility] Stop: 03/29/18 11:25 Vancomycin HCl 1,250 mg/ (Sodium Chloride) 262.5 mls @ 250 mls/hr IV.SIG Q24H [facility] Last Infusion: 03/27/18 08:37 Dose: Infused Insulin Aspart (Novolog Insulin Correctional Sugar Inj) 0 unit SQ ACHS [facility]; Protocol Last Admin: 03/27/18 16:51 Dose: 2 unit Metoprolol Tartrate (Lopressor) 25 mg PO DORMITORY KEEPER [facility] Stop: 03/29/18 11:25 Miscellaneous Information ([facility] [place] [facility] Ordered Lab Info) 0 each OTHER ONCE ONE Stop: 03/28/18 23:46 Miscellaneous Information ([facility] [place] Nursing Information) 1 each OTHER UNSCH PRN PRN Reason: SEE LABEL COMMENTS Stop: 03/28/18 01:05 Pharmacy Profile Note (Vancomycin Consult Pharmacy) 1 each OTHER UNSCH PRN PRN Reason: Pharmacy to dose Povidone Iodine (Betadine 5% Antisepsis Kit) 1 applicatio EACH NARE DORMITORY KEEPER [facility] Stop: 03/29/18 11:25 Pravastatin Sodium (Pravachol) 40 mg PO DAILY [facility] Last Admin: 03/27/18 11:24 Dose: 40 mg Allergies Allergy/AdvReac Type Severity Reaction Status Date / Time No Known Allergies Allergy Verified 03/25/18 20:12 Home Medications Medication Instructions Recorded Confirmed Type amlodipine 2.5 mg PO DAILY 03/25/18 03/25/18 History gabapentin 300 mg PO TID 03/25/18 03/25/18 History glipizide 10 mg PO BID 03/25/18 03/25/18 History lisinopril 40 mg PO DAILY 03/25/18 03/25/18 History lovastatin 40 mg PO DAILY 03/25/18 03/25/18 History metformin 1,000 mg PO BID 03/25/18 03/25/18 History sulfamethoxazole-trimethoprim 1 tab PO BID 03/25/18 03/25/18 History Results - Labs CBC & Chem 7: 03/26/18 09:35 03/27/18 11:42 Laboratory Results - last 24 hr 03/27/18 03/27/18 03/27/18 11:42 12:21 16:42 Sodium 141 Potassium 5.3 H Chloride 109 H Carbon Dioxide 26.0 Anion Gap 6 BUN 18 Creatinine 1.22 Estimated GFR 62 L POC Glucose 120 H 159 H Random Glucose 110 H Calcium 8.9 Microbiology 03/26/18 23:42 Wound - Toe Acid Fast Bacilli Smear - Final No acid fast bacilli seen 03/26/18 23:42 Wound - Toe Fungal Smear - Final No fungal elements seen 03/26/18 23:42 Wound - Toe Gram Stain - Final Assessment and Plan - Assessment (1) Osteomyelitis of right foot Code(s): M86.9 - Osteomyelitis, unspecified Status: Acute Plan: Keep dressing clean, dry, intact Recommend waiting for final culture result prior to discharge OK with discharge when results are in Follow up with Luis 1 week after discharge for dressing change. Weightbearing as tolerated in surgical shoe
[2018-03-28] MEDS: Vancomycin Inj 1,250 MG in Sodium Chlor 0.9% Inj 250 ML IV.SIG SCH (03:32)
[2018-03-28] MEDS: Sod Chloride 0.9% Inj 1,000 ML IV.CONT SCH (03:33)
[2018-03-28 04:50] LABS: Baso # (Auto) 0.1 th/mm3 (0.0-0.2); Baso % (Auto) 0.8 % (0.0-2.0); Eos # (Auto) 0.8 th/mm3 (0.0-0.4); Eos % (Auto) 8.8 % (0.0-4.0); Hematocrit 28.8 % (39.0-51.0); Hemoglobin 10.3 gm/dL (13.0-17.0); Lymph # (Auto) 2.9 th/mm3 (1.0-4.8); Lymph % (Auto) 30.8 % (9.0-44.0); Mean Corpuscular HGB Conc 35.5 % (32.0-36.0); Mean Corpuscular Hemoglobin 32.5 pg (27.0-34.0); Mean Corpuscular Volume 91.3 fL (80.0-100.0); Mean Platelet Volume 8.3 fL (7.0-11.0); Neut # (Auto) 4.5 th/mm3 (1.8-7.7); Neut % (Auto) 48.6 % (16.0-70.0); Platelet Count 341 th/mm3 (150-450); Red Blood Count 3.16 mil/mm3 (4.50-5.90); Red Cell Distribution Width 12.9 % (11.6-17.2); White Blood Count 9.3 th/mm3 (4.0-11.0)
[2018-03-28 05:10] LABS: Calcium 8.6 mg/dL (8.5-10.1); Carbon Dioxide 26.2 meq/L (21.0-32.0); Potassium 4.8 meq/L (3.5-5.1)
--- NOTE | 2018-03-28 10:57 | P.PNIM ---
Subjective Interval history: No new complaints He denies any significant pain but pt appears somewhat anxious Physical Exam Vital signs: Vital Signs 03/27/18 12:00 03/27/18 16:00 03/27/18 20:00 Temperature 98.0 F 97.5 F L 98.7 F Pulse Rate 68 63 72 Respiratory Rate 18 18 20 Blood Pressure 191/93 H 170/84 H 179/86 H Pulse Oximetry 96 97 97 03/28/18 00:00 Temperature 98.4 F Pulse Rate 73 Respiratory Rate 20 Blood Pressure 192/91 H Pulse Oximetry 98 Intake & Output 03/27/18 03/28/18 03/28/18 18:59 06:59 18:59 Intake Total 262.5 / 262.5 Balance 262.5 / 262.5 Intake: IV 262.5 / 262.5 Vancomycin Inj 1,250 MG In NS 262.5 / 262.5 Inj 250 ML @ 250 mls/hr IV.SIG Q24H [facility] Rx#:[id number] Other: # Voids 2 Date of Last Bowel Movement 03/27/18 03/27/18 Narrative: general: NAD, AAOx3 Chest: CTA Cardiac: Regular Abd: +BS, soft ND/NT Ext: Right foot bandages are c/d/i Results - Labs CBC & Chem 7: 03/28/18 03:51 03/28/18 03:51 Laboratory Results - last 24 hr 03/27/18 03/27/18 03/27/18 11:42 12:21 16:42 WBC RBC Hgb Hct MCV MCH MCHC RDW Plt Count MPV Neut % (Auto) Lymph % (Auto) [place] % (Auto) Eos % (Auto) Baso % (Auto) Neut # (Auto) Lymph # (Auto) [place] # (Auto) Eos # (Auto) Baso # (Auto) WBC Differential Differential Comment Sodium 141 Potassium 5.3 H Chloride 109 H Carbon Dioxide 26.0 Anion Gap 6 BUN 18 Creatinine 1.22 Estimated GFR 62 L POC Glucose 120 H 159 H Random Glucose 110 H Calcium 8.9 03/27/18 03/28/18 03/28/18 22:20 03:51 03:51 WBC 9.3 RBC 3.16 L Hgb 10.3 L Hct 28.8 L MCV 91.3 MCH 32.5 MCHC 35.5 RDW 12.9 Plt Count 341 MPV 8.3 Neut % (Auto) 48.6 Lymph % (Auto) 30.8 [place] % (Auto) 11.0 H Eos % (Auto) 8.8 H Baso % (Auto) 0.8 Neut # (Auto) 4.5 Lymph # (Auto) 2.9 [place] # (Auto) 1.0 H Eos # (Auto) 0.8 H Baso # (Auto) 0.1 WBC Differential . Differential Comment Auto diff final Sodium 141 Potassium 4.8 Chloride 108 H Carbon Dioxide 26.2 Anion Gap 7 BUN 22 H Creatinine 1.35 H Estimated GFR 55 L POC Glucose 159 H Random Glucose 99 Calcium 8.6 Microbiology 03/26/18 23:42 Wound - Toe Acid Fast Bacilli Smear - Final No acid fast bacilli seen 03/26/18 23:42 Wound - Toe Fungal Smear - Final No fungal elements seen 03/26/18 23:42 Wound - Toe Gram Stain - Final - Imaging Foot MRI 03/25/18 20:21 CONCLUSION: 1. Findings are diagnostic of osteomyelitis of the distal phalanx of the fourth digit with destruction of the phalanx. Foot X-Ray 03/25/18 20:21 CONCLUSION: Abnormal appearance to the fourth digit with prominent soft tissue swelling and some degree of bony resorption of the distal phalanx about the tuft. Extremity Arterial Study 03/26/18 00:00 CONCLUSION: Normal study. Assessment and Plan - Assessment (1) Infection of toe Code(s): L08.9 - Local infection of the skin and subcutaneous tissue, unspecified Status: Acute Plan: Right foot 4th digit infection and osteomyelitis - Pt is a 52 y/o male with diabetes and HTN. - He presented to the ED at [facility] [place] on 03/25/18 with complaints of right foot 4th digit infection and swelling. Pt has reportedly been having issues with swelling of the right foot 4th digit for the last 3 weeks. He has been following with Dr. Leslie as an outpt who has been monitoring the digit in the output setting. Around 1 week ago the pt reportedly noted worsening swelling and fevers. He was started on Cipro but this reportedly caused him to have vomiting and was then switched to Bactrim BID on 03/20/18 which he has been taking but there has not been any significant improvement in the infection. There has not been any reported open wound or drainage from the digit. - Foot X-Ray (03/25/18) --> Abnormal appearance to the fourth digit with prominent soft tissue swelling and some degree of bony resorption of the distal phalanx about the tuft. - Foot MRI (03/25/18) --> Findings diagnostic of osteomyelitis of the distal phalanx of the fourth digit with destruction of the phalanx. - ESR greater than 140 and CRP 5.70 at admission. -Pt was started on IV Vancomycin in the ED with pharmacy to dose. - Arterial Doppler normal - Podiatry is following. - Pt underwent Right 4th digit amputation on 03/26/[address] Smith - the case was discussed between Dr. Roper and Dr. Smith on 03/27 and he would like pt to go home on a po abx. - Gram stain with a few WBCs but no organisms. Final cultures and pathology are pending. - Pain is controlled currently - Supportive care Acute on chronic kidney disease Hyperkalemia - Outpt labs on 03/04 with Cr 1.55/BUN 34, GFR 50 and prior to that labs in 2017 with Cr 1.17/BUN 23, GFR 71 - Labs at admission with Cr 1.83/BUN 28 and GFR 39 - Pt is been receiving IVF - Repeat labs on 03/26 with Cr 1.70 and potassium 5.4 - Await repeat BMP today Diabetes mellitus - Hold OHA - NovoLog SSI - Accu checks HTN - Lisinopril held due to increased Cr at admission. - Cont. Norvasc 2.5mg po daily - Clonidine PRN - Pts BP has been elevated today, likely more anxiety related - Monitor Hyperlipidemia - Cont. home meds The exam, history, and the medical decision-making described in the above note were completed with the assistance of the mid-level provider. I reviewed and agree with the findings presented. I attest that I had a [id number] encounter with the patient on the same day, and personally performed and documented my assessment and findings in the medical record. dc ivf. dc iv abx and start po. f/u path and cx. resume bp meds. plan for dc tomorrow and f/u podiatry. wound care per podiatry. Samoan speaking daughter at bedside and all questions answered. (2) HTN (hypertension) Code(s): I10 - Essential (primary) hypertension Status: Acute (3) Diabetes mellitus Code(s): E11.9 - Type 2 diabetes mellitus without complications Status: Acute (4) Peripheral neuropathy Code(s): G62.9 - Polyneuropathy, unspecified Status: Acute
[2018-03-28] MEDS: amLODIPine 5 MG Tablet PO SCH (11:41)
[2018-03-28] MEDS: Gabapentin 300 MG Capsule PO SCH ×3 (11:41→22:41)
[2018-03-28] MEDS: Insulin NovoLOG Aspart Correctional Sugar Inj SQ SCH ×4 (12:55→22:05)
[2018-03-28] MEDS ORDERED: Amoxicillin/Clavulanate 500/125 MG Tablet PO SCH (13:00)
[2018-03-28] MEDS ORDERED: levoFLOXacin Liq 25 MG/ML 100 ML Bottle PO SCH (17:00)
[2018-03-28] MEDS ORDERED: levoFLOXacin 500 MG Tablet PO SCH (18:15)
[2018-03-28] MEDS: Lisinopril 20 MG Tablet PO SCH (18:17)
--- NOTE | 2018-03-28 22:04 | P.PNPOD ---
Review of Systems All other systems reviewed negative except as stated in HPI Physical Exam Vital signs: Vital Signs 03/28/18 00:00 Temperature 98.4 F Pulse Rate 73 Respiratory Rate 20 Blood Pressure 192/91 H Pulse Oximetry 98 Intake & Output 03/28/18 03/28/18 03/29/18 06:59 18:59 06:59 Other: Date of Last Bowel Movement 03/27/18 03/27/18 Narrative: Neurovascularly intact remainder of R foot. Dressing clean, dry, intact. Medications and Allergies Active Medications: Active Medications Amlodipine Besylate (Norvasc) 2.5 mg PO DAILY [facility] Last Admin: 03/28/18 11:41 Dose: 2.5 mg Chlorhexidine Gluconate (Chlorhexidine 2% Cloth) 3 pack TOPICAL INTELLECTUAL PROPERTY COUNSEL [facility] Stop: 03/29/18 11:25 Clonidine HCl (Catapres) 0.1 mg PO Q6H PRN PRN Reason: systolic BP over 170 Dextrose (D50w Vial) 50 ml IV.PUSH UNSCH PRN PRN Reason: PER HYPOGLYCEMIA PROTOCOL Gabapentin (Neurontin) 300 mg PO TID [facility] Last Admin: 03/28/18 18:06 Dose: 300 mg Glucagon (Glucagon Inj) 1 mg OTHER PRN PRN PRN Reason: for Hypoglycemia Protocol Lactated Ringer's (Lr 1000 Ml Inj) 1,000 mls @ 30 mls/hr IV.SIG .Q24H [facility] Stop: 03/29/18 11:25 Last Admin: 03/28/18 12:56 Dose: Not Given Sodium Chloride (Ns Inj) 500 mls @ 30 mls/hr IV.SIG .Q10H [facility] Stop: 03/29/18 11:25 Insulin Aspart (Novolog Insulin Correctional Sugar Inj) 0 unit SQ ACHS [facility]; Protocol Last Admin: 03/28/18 18:06 Dose: 2 unit Levofloxacin (Levaquin) 500 mg PO DAILY@1800 [facility] Last Admin: 03/28/18 18:18 Dose: 500 mg Lisinopril (Prinivil) 40 mg PO DAILY [facility] Last Admin: 03/28/18 18:17 Dose: 40 mg Metoprolol Tartrate (Lopressor) 25 mg PO [employer]EL[employer] PROPERTY COUNSEL [facility] Stop: 03/29/18 11:25 Miscellaneous Information ([facility] [facility] Ordered Lab Info) 0 each OTHER ONCE ONE Stop: 03/28/18 23:46 Povidone Iodine (Betadine 5% Antisepsis Kit) 1 applicatio EACH NARE [employer] PROPERTY COUNSEL [facility] Stop: 03/29/18 11:25 Pravastatin Sodium (Pravachol) 40 mg PO DAILY [facility] Last Admin: 03/28/18 11:41 Dose: 40 mg Allergies Allergy/AdvReac Type Severity Reaction Status Date / Time No Known Allergies Allergy Verified 03/25/18 20:12 Home Medications Medication Instructions Recorded Confirmed Type amlodipine 2.5 mg PO DAILY 03/25/18 03/25/18 History gabapentin 300 mg PO TID 03/25/18 03/25/18 History glipizide 10 mg PO BID 03/25/18 03/25/18 History lisinopril 40 mg PO DAILY 03/25/18 03/25/18 History lovastatin 40 mg PO DAILY 03/25/18 03/25/18 History metformin 1,000 mg PO BID 03/25/18 03/25/18 History sulfamethoxazole-trimethoprim 1 tab PO BID 03/25/18 03/25/18 History Results - Labs CBC & Chem 7: 03/28/18 03:51 03/28/18 03:51 Laboratory Results - last 24 hr 03/27/18 03/28/18 03/28/18 22:20 03:51 03:51 WBC 9.3 RBC 3.16 L Hgb 10.3 L Hct 28.8 L MCV 91.3 MCH 32.5 MCHC 35.5 RDW 12.9 Plt Count 341 MPV 8.3 Neut % (Auto) 48.6 Lymph % (Auto) 30.8 [place] % (Auto) 11.0 H Eos % (Auto) 8.8 H Baso % (Auto) 0.8 Neut # (Auto) 4.5 Lymph # (Auto) 2.9 [place] # (Auto) 1.0 H Eos # (Auto) 0.8 H Baso # (Auto) 0.1 WBC Differential . Differential Comment Auto diff final Sodium 141 Potassium 4.8 Chloride 108 H Carbon Dioxide 26.2 Anion Gap 7 BUN 22 H Creatinine 1.35 H Estimated GFR 55 L POC Glucose 159 H Random Glucose 99 Calcium 8.6 03/28/18 03/28/18 03/28/18 11:37 17:37 21:22 WBC RBC Hgb Hct MCV MCH MCHC RDW Plt Count MPV Neut % (Auto) Lymph % (Auto) [place] % (Auto) Eos % (Auto) Baso % (Auto) Neut # (Auto) Lymph # (Auto) [place] # (Auto) Eos # (Auto) Baso # (Auto) WBC Differential Differential Comment Sodium Potassium Chloride Carbon Dioxide Anion Gap BUN Creatinine Estimated GFR POC Glucose 154 H 174 H 160 H Random Glucose Calcium Microbiology 03/26/18 23:42 Wound - Toe Gram Stain - Final 03/26/18 23:42 Wound - Toe Wound Culture - Preliminary Pseudomonas species Group B beta Strep Assessment and Plan - Assessment (1) Osteomyelitis of right foot Code(s): M86.9 - Osteomyelitis, unspecified Status: Acute Plan: Keep dressing clean, dry, intact R foot. Discussed he will keep dressing on and will be changed in clinic next week. Will have clinic call patient on Saturday to schedule. OK with discharge tomorrow on 10 days appropriate antibiotics Weightbearing as tolerated in surgical shoe R foot
[2018-03-28] MEDS ORDERED: Pharmacy Ordered Lab Info OTHER ONE (23:45)
[2018-03-29 01:04] LABS: Vancomycin,Trough 9.5 mcg/mL (5.0-10.0)
[2018-03-29 01:07] LABS: Calcium 8.4 mg/dL (8.5-10.1); Carbon Dioxide 27.4 meq/L (21.0-32.0); Potassium 5.2 meq/L (3.5-5.1)
[2018-03-29] MEDS: Lisinopril 20 MG Tablet PO SCH (08:14)
[2018-03-29] MEDS: Gabapentin 300 MG Capsule PO SCH (08:15)
--- NOTE | 2018-03-29 11:20 | P.DCO ---
- Home Health Nursing Order: Medical education, Diabetic education, Nursing assessment with vital signs Instructions: Leave dressing on right foot in, dressing to be changed by children teacher next week. Then dressing change orders per podiatry after that. Check CBC, BMP on 04/01/18, with results to the pts PCP, Dr. Keegan Ma. - Certification I have seen patient Johnny Busby on 03/29/18. My clinical findings support the need for the requested home health care services because: Infection with risk of complications I certify that my clinical findings support that this patient is homebound because: Post-op weakness
--- NOTE | 2018-03-29 11:47 | P.DS ---
<Vania Ortega E - Last Filed: 03/29/18 11:21> Date of admission: 03/25/18 22:43 Primary care physician: UNKNOWN Attending physician on discharge: Se Roper Anticipated date of discharge: 03/29/18 Brief History from admission: Mr. Busby is a pleasant 52 y/o male with diabetes and HTN. He presented to the ED at [facility] [place] on 03/25/18 with complaints of right foot 4th digit infection and swelling. Pt does not speak any French. His daughter is at bedside to aide in translation. Pt has reportedly been having issues with swelling of the right foot 4th digit for the last 3 weeks. He has been following with Dr. Leslie as an outpt who has been monitoring the digit in the output setting. Around 1 week ago the pt reportedly noted worsening swelling and fevers. He was started on Cipro but this reportedly caused him to have vomiting and was then switched to Bactrim BID on 03/20/18 which he has been taking but there has not been any significant improvement in the infection. There has not been any reported open wound or drainage from the digit. Pt denies any trauma or injury to the toe or foot prior to the onset of swelling 3 weeks ago. In the ED he had Foot X-Ray which noted an abnormal appearance to the fourth digit with prominent soft tissue swelling and some degree of bony resorption of the distal phalanx about the tuft. Foot MRI revealed findings diagnostic of osteomyelitis of the distal phalanx of the fourth digit with destruction of the phalanx. Pt was started on IV Vancomycin in the ED. He denies any shaking chills, nausea/vomiting, abdominal pain, chest pain, SOB, palpitations, dizziness or weakness. Past Medical Hx: Diabetes mellitus, Hgb A1C 7.0% on 03/04/18 Peripheral Neuropathy HTN Hyperlipidemia Hx of femur fracture Past Surgical Hx: Femur fracture repair Family Hx: Noncontributory Social Hx: Tomer any alcohol, tobacco or illicit drug use Pt works as a archival records clerk DS: Diagnosis - Discharge Diagnosis (1) Infection of toe Status: Acute (2) Failure of outpatient treatment Status: Acute (3) HTN (hypertension) Status: Acute (4) Diabetes mellitus Status: Acute (5) Peripheral neuropathy Status: Acute (6) Osteomyelitis of right foot Status: Acute DS: Medications - Discharge Medications Prescriptions: levofloxacin 500 mg PO DAILY@1800 7 Days tab nifedipine 30 mg PO DAILY 30 Days #30 tab DS: Summary Hospital Course: Right foot 4th digit infection and osteomyelitis - Pt is a 52 y/o male with diabetes and HTN. He presented to the ED at [facility] [place] on 03/25/18 with complaints of right foot 4th digit infection and swelling. Pt has reportedly been having issues with swelling of the right foot 4th digit for the last 3 weeks. He has been following with Dr. Leslie as an outpt who has been monitoring the digit in the output setting. Around 1 week ago the pt reportedly noted worsening swelling and fevers. He was started on Cipro but this reportedly caused him to have vomiting and was then switched to Bactrim BID on 03/20/18 which he has been taking but there has not been any significant improvement in the infection. There has not been any reported open wound or drainage from the digit. Foot X-Ray (03/25/18) --> Abnormal appearance to the fourth digit with prominent soft tissue swelling and some degree of bony resorption of the distal phalanx about the tuft. Foot MRI (03/25/18) --> Findings diagnostic of osteomyelitis of the distal phalanx of the fourth digit with destruction of the phalanx. ESR greater than 140 and CRP 5.70 at admission. t was started on IV Vancomycin in the ED and was continued until 03/28. Arterial Doppler normal. Podiatry was consulted at admission. Pt underwent Right 4th digit amputation on 03/26/[address] Enrique. The case was discussed between Dr. Roper and Dr. Enrique on 03/27 and he would like pt to go home on a po abx. Surgical cultures grew out pseudomonas aeruginosa and Group B beta strep. Final pathology is still pending. The Abx were changed to Levaquin po on 03/28. Pt will be discharged on Levaquin 500mg po daily x 7 more days. Pt is to followup next week with Dr. Enrique He is to leave the dressing in place until seen by podiatry Pt is to weight bear as tolerated in the post-op shoe The pathology will need to be followed up on with podiatry at discharge. Acute on chronic kidney disease Hyperkalemia - Outpt labs on 03/04 with Cr 1.55/BUN 34, GFR 50 and prior to that labs in 2017 with Cr 1.17/BUN 23, GFR 71. Labs at admission with Cr 1.83/BUN 28 and GFR 39. Pt received IVF during admission. Repeat labs on 03/29 with Cr 1.36 and potassium 5.2. Review of outpt records notes that the pts potassium tends to run on the high side of normal. This will need to be continued to be monitored as an outpt. Repeat BMP next week by [facility] with results to his PCP. Diabetes mellitus - Resume pts home meds upon discharge. Pt was given a glucometer and prescription for test strips and lancelets. Discussed with the pt and his daughter at bedside that the pt should be monitoring his BG in the morning prior to oral intake and prior to his meals and at bedtime. These numbers should be recorded for his PCP to review at followup. HTN - Lisinopril held due to increased Cr at admission. He was continued on his home dose of Norvasc 2.5mg po daily. His BP was elevated yesterday so his Lisinopril was added back to his regimen. This did not seem to help the BP so the Norvasc was stopped and he was started on Procardia. The pt will be changed to the Procardia at discharge and the Lisinopril. We will arrange for [facility] for monitoring his BP and discussed with the pts daughter getting a home BP cuff for monitoring Hyperlipidemia - Cont. home meds - Time Spent with Patient Total time spent providing and/or coordinating discharge services: Greater than 30 minutes - Quality: VTE Deep Vein Thrombosis/Pulmonary Embolism Present on Admission: No Exam Vital signs: Vital Signs 03/28/18 20:00 03/29/18 00:00 03/29/18 08:00 Temperature 97.9 F 97.9 F 97.9 F Pulse Rate 68 68 64 Respiratory Rate 18 18 17 Blood Pressure 196/88 H 175/82 H 160/73 H Pulse Oximetry 98 98 98 Intake & Output 03/28/18 03/29/18 03/29/18 18:59 06:59 18:59 Intake Total 262.5 / 262.5 Balance 262.5 / 262.5 Intake: IV 262.5 / 262.5 Other: Date of Last Bowel Movement 03/27/18 Results Procedures completed during hospitalization: See above Pending studies at discharge: Pending at discharge 03/27/18 Surgical [PTH] Routine Labs on day of discharge: Labs from last 24 hours 03/29/18 03/29/18 03/28/18 08:14 00:18 21:22 Sodium 140 Potassium 5.2 H Chloride 107 Carbon Dioxide 27.4 Anion Gap 6 BUN 22 H Creatinine 1.36 H Estimated GFR 55 L POC Glucose 114 H 160 H Random Glucose 117 H Calcium 8.4 L Vancomycin Trough 9.5 03/28/18 03/28/18 17:37 11:37 Sodium Potassium Chloride Carbon Dioxide Anion Gap BUN Creatinine Estimated GFR POC Glucose 174 H 154 H Random Glucose Calcium Vancomycin Trough - Impressions ITS Impressions Foot MRI 03/25/18 20:21 CONCLUSION: 1. Findings are diagnostic of osteomyelitis of the distal phalanx of the fourth digit with destruction of the phalanx. Foot X-Ray 03/25/18 20:21 CONCLUSION: Abnormal appearance to the fourth digit with prominent soft tissue swelling and some degree of bony resorption of the distal phalanx about the tuft. Extremity Arterial Study 03/26/18 00:00 CONCLUSION: Normal study. <Se Roper - Last Filed: 03/29/18 12:26> Date of admission: 03/25/18 22:43 Primary care physician: UNKNOWN DS: Diagnosis - Discharge Diagnosis (1) Infection of toe Status: Acute (2) HTN (hypertension) Status: Acute (3) Diabetes mellitus Status: Acute (4) Peripheral neuropathy Status: Acute DS: Summary - Time Spent with Patient Total time spent providing and/or coordinating discharge services: Exam Vital signs: Vital Signs 03/28/18 20:00 03/29/18 00:00 03/29/18 08:00 Temperature 97.9 F 97.9 F 97.9 F Pulse Rate 68 68 64 Respiratory Rate 18 18 17 Blood Pressure 196/88 H 175/82 H 160/73 H Pulse Oximetry 98 98 98 03/29/18 11:29 Temperature 98.1 F Pulse Rate 65 Respiratory Rate 18 Blood Pressure 149/76 H Pulse Oximetry 95 Intake & Output 03/28/18 03/29/18 03/29/18 18:59 06:59 18:59 Intake Total 262.5 / 262.5 Balance 262.5 / 262.5 Intake: IV 262.5 / 262.5 Other: Date of Last Bowel Movement 03/27/18 Results Pending studies at discharge: Pending at discharge 03/27/18 Surgical [PTH] Routine Labs on day of discharge: Labs from last 24 hours 03/29/18 03/29/18 03/28/18 08:14 00:18 21:22 Sodium 140 Potassium 5.2 H Chloride 107 Carbon Dioxide 27.4 Anion Gap 6 BUN 22 H Creatinine 1.36 H Estimated GFR 55 L POC Glucose 114 H 160 H Random Glucose 117 H Calcium 8.4 L Vancomycin Trough 9.5 03/28/18 17:37 Sodium Potassium Chloride Carbon Dioxide Anion Gap BUN Creatinine Estimated GFR POC Glucose 174 H Random Glucose Calcium Vancomycin Trough - Impressions ITS Impressions Foot MRI 03/25/18 20:21 CONCLUSION: 1. Findings are diagnostic of osteomyelitis of the distal phalanx of the fourth digit with destruction of the phalanx. Foot X-Ray 03/25/18 20:21 CONCLUSION: Abnormal appearance to the fourth digit with prominent soft tissue swelling and some degree of bony resorption of the distal phalanx about the tuft. Extremity Arterial Study 03/26/18 00:00 CONCLUSION: Normal study. Discharge Plan - Discharge Order Discharge Orders: Discharge Order (Routine); Ordered 03/29/18 Ordered By: Vania Ortega - Discharge Details Anticipated Discharge Date: 03/29/18 Discharge Comment: Followup next week with Dr. Enrique's office next week. Call on 03/31/18, to schedule that appt. - Physicians Team Primary Care Provider: UNKNOWN, Attending Provider: Se Roper Other Providers: John Enrique DPM ; [facility]
[2018-03-29] MEDS: Insulin NovoLOG Aspart Correctional Sugar Inj SQ SCH ×2 (12:27→12:30)
== END 2018-03-29 13:42 | disposition home health service (06) ==
LOC: NEPE 16:21 → NEDA 22:43 → NEPHCDU 23:55 → N06 03-26 22:21
PROVIDERS: ADMIT Hospitalist; ATTEND Hospitalist